=== PATIENT | male | born 1990 | race American Indian/Alaskan Native ===

== ENCOUNTER 2018-12-29 20:43 | Emergency (ER) | payer OTHER ==
[2018-12-29 20:52] VITALS: BP 122/72
--- NOTE | 2018-12-29 21:19 | Event Note ---
ED Screening Note Date of service: 12/29/18 Time: 21:14 ED Screening Note: This initial assessment/diagnostic orders/clinical plan/treatment(s) is/are subject to change based on patients health status, clinical progression and re- assessment by fellow clinical providers in the ED. Further treatment and workup at subsequent clinical providers discretion. Patient/guardian urged not to elope from the ED as their condition may be serious if not clinically assessed and managed. Initial orders include:
[2018-12-29] MEDS ORDERED: KETOROLAC 30 MG/1 ML INJ IM ONE (21:20)
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
== END 2018-12-29 22:30 | disposition home or self-care (01) ==
LOC: ED 20:43
DX: S39.012A Strain of muscle, fascia and tendon of lower back, initial encounter (principal); R51 Headache; J45.909 Unspecified asthma, uncomplicated; V49.49XA Driver injured in collision with other motor vehicles in traffic accident, initial encounter; Y93.89 Activity, other specified; Y92.89 Other specified places as the place of occurrence of the external cause; Y99.8 Other external cause status
CPT/HCPCS: 96372; 99282; J1885